=== PATIENT | male | born 1945 | race Two or more races ===

== ENCOUNTER 2016-10-29 09:35 | Day surgery (SDC) | payer OTHER, MEDICAID ==
[~2016-10-29] VITALS: Ht 165.1 cm; Wt 79.4 kg
[2016-10-29] MEDS ORDERED: FENTANYL CITRATE/PF 50MCG/ML 2ML VIAL ONE (10:10)
[2016-10-29 10:30] VITALS: BP 141/87
[2016-10-29 10:46] VITALS: BP 136/82
[2016-10-29 10:56] VITALS: BP 127/77
[2016-10-29] MEDS ORDERED: FENTANYL CITRATE/PF 50MCG/ML 2ML VIAL IV ONE (11:30)
[2016-10-29 11:36] VITALS: BP 141/87
[2016-10-29 11:46] VITALS: BP 141/87
[2016-10-29] MEDS ORDERED: LOSA100T14 PO (12:23)
[2016-10-29] MEDS ORDERED: LEVO25TA7 PO (12:23)
[2016-10-29] MEDS ORDERED: metoprolol tartrate (12:23)
[2016-10-29] MEDS ORDERED: TRAM50TA3 PO (12:23)
== END 2016-10-29 15:00 | disposition home or self-care (01) ==
LOC: RAD 09:35
PROVIDERS: ATTEND Radiology Radiation Oncology
DX: J93.9 Pneumothorax, unspecified (principal); Z85.72 Personal history of non-Hodgkin lymphomas
CPT/HCPCS: 32405; 71010; 77012; 88305; J3010